=== PATIENT | female | born 1995 | race Caucasian/White ===

== ENCOUNTER 2020-09-19 13:49 | Emergency (ER) | payer OTHER ==
[2020-09-19 14:47] LABS: HEMOGLOBIN 14.5 gm/dl (12.3-15.3)
== END 2020-09-19 16:27 | disposition left against medical advice (07) ==
LOC: ER1 13:49
PROVIDERS: Physician Assistant
DX: O20.0 Threatened abortion (principal); O99.891 Other specified diseases and conditions complicating pregnancy; R11.0 Nausea; Z87.891 Personal history of nicotine dependence; Z88.2 Allergy status to sulfonamides; Z3A.01 Less than 8 weeks gestation of pregnancy; Z53.20 Procedure and treatment not carried out because of patient's decision for unspecified reasons
CPT/HCPCS: 76817; 81001; 84702; 84703; 85014; 85018; 86900; 86901; 99284